=== PATIENT | female | born 1970 | race Caucasian/White ===

== ENCOUNTER → 2017-05-02 | Outpatient (CLI) | payer OTHER ==
--- NOTE | 2017-05-03 08:41 | RADIOLOGY REPORT (SQ) ---
EXAM DESCRIPTION: PET CT SKULL/THIGH COMPLETED DATE/TIME: 05/02/2017 7:01 pm REASON FOR STUDY: MALIGNANT NEOPLASM OF STOMACH C16.9 MALIGNANT NEOPLASM OF STOMACH, UNSPECIFIED COMPARISON: Pelvic ultrasound RADIONUCLIDE AND DOSE: 10.85 mCi F18 FDG The route of agent administration: Intravenous FASTING BLOOD SUGAR: 131 mg/dl CONTRAST TYPE AND DOSE: No CT contrast given. TECHNIQUE: Blood glucose level was verified. Above dose of FDG was injected intravenously. 2-D seg mented attenuation correction images were obtained from the base of the skull to the midthighs. Nonc ontrast CT images were obtained for attenuation correction and fusion with emission images. CT image s were performed without oral or intravenous contrast and are not sensitive for parenchymal lesions. A series of overlapping emission PET images were obtained. Images reviewed and manipulated at [facility] [employer] work station by the radiologist. Images stored on PACS. LIMITATIONS: None. FINDINGS: HEAD AND NECK: No areas of abnormal metabolic activity in the soft tissues of the head and neck. CHEST: No areas of abnormal metabolic activity in the chest. ABDOMEN AND PELVIS: Diffuse activity is seen through the colon which is a normal finding. There is a lso activity in the ascites without a specific focus of solid tumor. Diffuse thickening of the gastr ic wall but no hypermetabolic activity. PROXIMAL LOWER EXTREMITIES: No areas of abnormal metabolic activity in the soft tissues of the lower extremities. BONES: No abnormal metabolic activity in the visualized skeleton. ADDITIONAL CT FINDINGS: Diffuse ascites. Diffuse thickening of the gastric wall. Suspect peritoneal implants. OTHER: No other significant findings. IMPRESSION: Activity through the bowel which is of normal finding. Scattered minimal activity in th e ascites without a specific focus of solid tumor. Diffuse thickening of the gastric wall but no hypermetabolic activity. TECHNICAL DOCUMENTATION: JOB ID: [id number] [employer]- All Rights Reserved Reading location - IP/workstation name: [facility] [id number]
== END ==
LOC: RAD 16:28
PROVIDERS: ATTEND Student in an Organized Health Care Education/Training Program
DX: C16.9 Malignant neoplasm of stomach, unspecified (principal)
CPT/HCPCS: 78815; A9552